=== PATIENT | female | born 1995 | race Caucasian/White ===

== ENCOUNTER 2025-06-20 12:46 | Inpatient (IN) | payer BC ==
[2025-06-20 13:16] VITALS: BMI 29.9
[2025-06-20] MEDS ORDERED: hydrALAZINE 20 MG/ML VIAL SLOW IVP PRN (14:06)
[2025-06-20] MEDS ORDERED: Ondansetron PF 4 MG/2 ML Vial IVP PRN ×4 (14:06→19:02)
[2025-06-20] MEDS ORDERED: Acetaminophen 500 MG TAB PO PRN (14:06)
[2025-06-20] MEDS ORDERED: Tranexamic Acid 1,000 MG/10 ML VIAL IVP PRN (14:06)
[2025-06-20] MEDS ORDERED: Diphenoxylate HCl/Atropine Tablet PO PRN (14:06)
[2025-06-20] MEDS ORDERED: Methylergonovine 0.2 MG/ML VIAL IM PRN (14:06)
[2025-06-20] MEDS ORDERED: Carboprost 250 MCG/ML AMP IM PRN (14:06)
[2025-06-20] MEDS ORDERED: HYDROcodone/Acetaminophen 5/325 mg Tablet PO PRN (14:09)
[2025-06-20] MEDS ORDERED: Ibuprofen 800 MG TAB PO PRN (14:09)
[2025-06-20] MEDS ORDERED: Lidocaine 1% (PF) 30 ML VIAL SC PRN (14:09)
[2025-06-20] MEDS ORDERED: Oxytocin 30 units/NS 500 ML 500 ML IV SCH (14:15)
[2025-06-20 14:20] LABS: Hematocrit 36.9 % (34.9-44.5); Hemoglobin 12.6 g/dL (12.0-15.5); Mean Corpuscular Hemoglobin 31.8 pg (27.0-33.0); Mean Corpuscular Volume 93.2 fL (81.6-98.3); Platelet Count 163 10x3/uL (150-450); Red Blood Cell (RBC) Count 3.96 10x6/uL (3.90-5.03); White Blood Cell (WBC) Count 14.18 10x3/uL (3.5-10.5)
[2025-06-20] MEDS: fentaNYL/Ropivacaine Epidural 100 ML ONE (14:33)
[2025-06-20 14:52] LABS: Syphilis Antibody Index 0.06 S/CO (<1.00 Non-Reactive)
[2025-06-20 14:54] LABS: Hep B Surf Ag - L&D Non-Reactive S/CO (NonReactive)
[2025-06-20] MEDS ORDERED: diphenhydrAMINE 50 MG/ML VIAL IVP PRN ×2 (14:55→19:02)
[2025-06-20] MEDS ORDERED: Acetaminophen 325 MG TAB PO PRN (14:55)
[2025-06-20] MEDS ORDERED: fentaNYL 2 mcg/Ropivacaine 0.2% Epidural 100 ML CADD EPIDURAL SCH (15:00)
[2025-06-20] MEDS ORDERED: Communication Order-Pharmacy FS SCH ×2 (15:00→19:15)
[2025-06-20] MEDS ORDERED: Meperidine HCl/PF 25 MG (1 mL) VIAL SLOW IVP PRN (19:01)
[2025-06-20] MEDS ORDERED: Lanolin Ointment 7 GM TUBE TOP PRN (19:12)
[2025-06-20] MEDS ORDERED: Boostrix 0.5 ML (Tdap) VIAL (>/=7 yrs of age) IM ONE (19:12)
[2025-06-20] MEDS ORDERED: Ketorolac Tromethamine 30 MG (1 mL) VIAL IVP SCH (19:15)
[2025-06-20 19:23] LABS: Analyzer IN Cardio CS NICU; pH (Cord, venous) 7.291 (7.250-7.350)
[2025-06-20 19:25] LABS: Analyzer IN Cardio CS NICU; Critical Notified By: cp.sdg; Critical Notified Whom: LND RN-Tara; RapidComm Collect By NUR.SM17
[2025-06-20] MEDS: CEFAZOLIN 2 GM VIAL ONE ×2 (22:42)
[2025-06-20] MEDS: Ondansetron PF 4 MG/2 ML Vial ONE (22:42)
[2025-06-20] MEDS: Azithromycin 500 MG VIAL ONE ×2 (22:42)
[2025-06-20] MEDS: Oxytocin 10 UNITS/ML VIAL ONE (22:42)
[2025-06-20] MEDS: Dexamethasone 10 MG/ML VIAL ONE (22:42)
[2025-06-20] MEDS: PHENYLEPHRINE-NS 100 MCG/ML 10 ML SYRINGE ONE (22:42)
[2025-06-20] MEDS: Ferrous Sulfate 325 MG TAB PO SCH (22:43)
[2025-06-20] MEDS: Ketorolac Tromethamine 30 MG (1 mL) VIAL IVP PRN (23:05)
[2025-06-21 05:38] LABS: Hematocrit 28.5 % (34.9-44.5); Hemoglobin 9.7 g/dL (12.0-15.5)
[2025-06-21] MEDS: HYDROcodone/Acetaminophen 7.5/325 mg Tablet PO PRN (08:30)
[2025-06-21] MEDS: Ibuprofen 200 MG TAB PO PRN (13:25)
[2025-06-21] MEDS: Simethicone Chewable 80 MG TAB PO PRN (23:11)
[2025-06-22 07:13] LABS: RapidComm Collect By LD RN
[2025-06-22 16:22] VITALS: BP 110/69; TEMP 98.4
== END 2025-06-22 18:00 | disposition home or self-care (01) | DRG 787 ==
LOC: CSHLD/OP 12:46 → CSHLD 14:23 → EEVIPCON 14:23 → CSHLD 19:26 → CSHPP 22:02
PROVIDERS: ADMIT Obstetrics & Gynecology; ATTEND Obstetrics & Gynecology
PROC: 10D00Z1 Extraction of Products of Conception, Low, Open Approach (ICD-10-PCS; principal; 2025-06-20)
PROC: 10907ZC Drainage of Amniotic Fluid, Therapeutic from Products of Conception, Via Natural or Artificial Opening (ICD-10-PCS; 2025-06-20)
PROC: 3E03329 Introduction of Other Anti-infective into Peripheral Vein, Percutaneous Approach (ICD-10-PCS; 2025-06-20)
PROC: 3E033XZ Introduction of Vasopressor into Peripheral Vein, Percutaneous Approach (ICD-10-PCS; 2025-06-20)
PROC: 3E0334Z Introduction of Serum, Toxoid and Vaccine into Peripheral Vein, Percutaneous Approach (ICD-10-PCS; 2025-06-21)
DX: O76 Abnormality in fetal heart rate and rhythm complicating labor and delivery (principal); O98.32 Other infections with a predominantly sexual mode of transmission complicating childbirth; O77.0 Labor and delivery complicated by meconium in amniotic fluid; O48.0 Post-term pregnancy; Z3A.40 40 weeks gestation of pregnancy; Z37.0 Single live birth; O99.345 Other mental disorders complicating the puerperium; F41.9 Anxiety disorder, unspecified; O26.893 Other specified pregnancy related conditions, third trimester; Z67.41 Type O blood, Rh negative
CPT/HCPCS: 36415; 51702; 82805; 85014; 85018; 85027; 85461; 86780; 86850; 86870; 86900; 86901; 86922; 87340; 88307; 90384; 96372; 99285; J1100; J1885; J2250; J2274; J2405; J2590; J3010